=== PATIENT | male | born 1950 | race Asian ===

== ENCOUNTER 2018-01-11 06:27 | Day surgery (SDC) | payer OTHER ==
[~2018-01-11] VITALS: Ht 160 cm; Wt 67.1 kg
[2018-01-11] MEDS ORDERED: KETOROLAC 30 MG/ML VIAL ONE (08:20)
[2018-01-11] MEDS ORDERED: LIDOCAINE 2% 100 MG/5 ML UJET TP ONE (08:20)
== END 2018-01-11 09:28 | disposition home or self-care (01) ==
LOC: MMU 06:27 → MDS 06:27
PROVIDERS: ATTEND Internal Medicine Gastroenterology
DX: Z12.11 Encounter for screening for malignant neoplasm of colon (principal); D12.5 Benign neoplasm of sigmoid colon; I10 Essential (primary) hypertension; Z87.891 Personal history of nicotine dependence; Z90.5 Acquired absence of kidney; Z85.528 Personal history of other malignant neoplasm of kidney
CPT/HCPCS: 45385; J1885